=== PATIENT | male | born 1990 ===

== ENCOUNTER 2022-09-11 07:54 | Outpatient (REF) | payer OTHER, SELFPAY ==
[2022-09-11 08:05] LABS: MANUAL DIFF FLAG NO
[2022-09-11 08:19] LABS: Basophils Percent Auto 0.4 % (0-2); Eosinophils Percent Auto 0.7 % (0-4); Hemoglobin 14.7 g/dl (14.0-18.0); Imm Gran Abs Auto 0.01 X10*3/uL (0.00-0.03); Imm Gran Pct Auto 0.2 % (0.0-0.4); Lymphocytes Absolute Auto 2.3 X10*3/uL (1.2-4.9); Lymphocytes Percent Auto 42.6 % (20-40); Mean Corpuscular HGB Conc 32.7 g/dl (31.0-36.0); Mean Corpuscular Hemoglobin 26.9 pg (27.0-33.0); Mean Corpuscular Volume 82.3 fL (80.0-98.0); Mean Platelet Volume 10.7 fL (9.4-12.4); Monocytes Absolute Auto 0.5 X10*3/uL (0.1-1.2); Monocytes Percent Auto 9.5 % (2-11); Neutrophils Absolute Auto 2.6 x10*3/uL (2.0-8.3); Neutrophils Percent Auto 46.6 % (45-73); Platelet Count 174 X10*3/uL (160-400); Red Blood Count 5.47 X10*6/uL (4.60-5.80); Red Cell Distribution Width 12.6 % (11.0-16.0); White Blood Count 5.5 X10*3/uL (4.8-10.8)
[2022-09-11 09:32] LABS: Alanine Aminotransferase 61 U/L (0-40); Albumin Level 4.4 g/dL (3.5-5.0); Alkaline Phosphatase 52 U/L (39-117); Anion Gap 11 (12-20); Aspartate Amino Transferase 27 U/L (5-37); Bilirubin Total 1.1 mg/dL (0.0-1.0); Blood Urea Nitrogen 17 mg/dL (9-16); Calcium 9.9 mg/dL (8.4-10.2); Carbon Dioxide 29 mmol/L (22-29); Chloride 106 mmol/L (96-108); Cholesterol 159 mg/dL; Estimated Glomerular Filt Rate > 60; Glucose Fasting 91 mg/dL (60-99); HDL Cholesterol 42 mg/dL; LDL Cholesterol Calculated 101 mg/dl; Potassium 4.5 mmol/L (3.3-5.1); Sodium 141 mmol/L (135-145); Total Protein 7.3 g/dL (6.5-8.0); Triglycerides 82 mg/dL
== END 2022-09-11 07:55 | disposition home or self-care (01) ==
LOC: HO.LAB 07:54
PROVIDERS: PCP Internal Medicine; Visit Provider Nurse Practitioner Family
DX: E66.9 Obesity, unspecified (principal)
CPT/HCPCS: 36415; 80053; 80061; 84439; 84443; 85025

== ENCOUNTER 2023-03-05 09:20 | Outpatient (REF) | payer OTHER, SELFPAY ==
[2023-03-05 11:42] LABS: Alanine Aminotransferase 55 U/L (0-40); Albumin Level 4.4 g/dL (3.5-5.0); Alkaline Phosphatase 48 U/L (39-117); Aspartate Amino Transferase 24 U/L (5-37); Bilirubin Direct 0.3 mg/dL (0.0-0.5); Bilirubin Total 1.3 mg/dL (0.0-1.0); Total Protein 7.6 g/dL (6.5-8.0)
[2023-03-05 12:00] LABS: Free T4 (Free Thyroxine) 0.95 ng/dL (0.71-1.85); Thyroid Stimulating Hormone 0.24 uIU/mL (0.32-4.0)
[2023-03-07 13:24] LABS: Thyroglobulin Antibodies <1 IU/mL (< or = 1); Thyroid Peroxidase Antibodies 1 IU/mL (<9)
== END 2023-03-05 09:21 | disposition home or self-care (01) ==
LOC: HO.LAB 09:20
PROVIDERS: PCP Internal Medicine; Visit Provider Internal Medicine
DX: R79.89 Other specified abnormal findings of blood chemistry (principal); R74.01 Elevation of levels of liver transaminase levels
CPT/HCPCS: 36415; 80076; 84439; 84443; 86376; 86800

== ENCOUNTER 2023-04-23 14:53 | Outpatient (AMB) | payer OTHER, SELFPAY ==
--- NOTE | 2023-04-23 14:54 | MHC.OFFVIS ---
Intake Vital Signs 04/23/23 15:16 Height 5 ft 8 in Weight 207 lb 3.752 oz BMI 31.5 BP 111/67 Blood Pressure Location Lt brachial Position Sitting Pulse 65 Intake Visit Reasons: Elevation of levels of liver transaminase levels Intake Note: Alin presents in the office as a new patient for elevated LFTs. CC: He states that he is not having any concerns today. Supply Assistant Required: No Allergies No Known Allergies Allergy (Verified 04/23/23 15:16) HPI HPI Comments History of Present Illness Details 32 y.o M with PMH of obesity s/p sleeve gastrectomy ([facility]) who is here for elevated LFTs. Pt currently has no gastrointestinal complaints to include abd pain, N,V. No abd distention, pruritus, rash, shortness of breath. No etOH use. No hx of recent medication changes or travel. Does not report IVDU. No fam hx of liver disease. Noted to have persistently elevated ALT since 2020. [facility] History Hand numbness Loud snoring Obese Polyarthralgia Surgical History H/O gastric sleeve Family History (Updated 04/23/23 @ 15:17 by VALERY Morel) Father No problems noted. Mother No problems noted. Maternal Grandmother Diabetes Maternal Grandfather No problems noted. Paternal Grandmother Diabetes Paternal Grandfather No problems noted. Family/Other Colon cancer Social History Housing: House Alcohol intake: current Alcohol intake frequency: holidays/special occasions only Alcohol type: beer and hard liquor Patient Tobacco Use Status: Never used Tobacco e-Cigarette/Vaping Use: Never Used Second Hand Smoke Exposure: No service: No Current occupational status: employed Current occupational exposures/hazards: No Cognitive needs: No Hearing needs: No Vision needs: No Review of Systems Const All systems reviewed & are unremarkable except as noted in HPI and below Physical Exam Vital Signs: Last Vital Signs Pulse 65 04/23/23 15:16 BP 111/67 04/23/23 15:16 BMI result Body Mass Index 31.5 Gen appear: NAD HEENT: nonicteric, no cervical lymphadenopathy Chest: CTA CVS: Regular S1/S2 Abd: soft, nontender, nondistended, bowel sounds + Ext: no peripheral edema Neuro: A/Ox3, noted to move all extremities spontaneously Psych: interacting appropriately Assessment & Plan Assessment & Plan (1) Elevated ALT measurement: Code(s): R74.01 - Elevation of levels of liver transaminase levels Plan Ddx include fatty liver/SOTOMAYOR, chronic hep, iron overload, AIH, wilsons, celiac etc. Work up ordered as below. US Abd also ordered. Fib 4 0.58 and therefore low likelihood of advanced fibrosis, and also no indication for elastography at this time. In the meantime, advised to avoid OTC/CAM, NSAIDs and etOH use. Follow up in 8 weeks. Orders: Orders Ceruloplasmin 04/23/23 R74.01 - Elevation of levels of liver transaminase levels Ferritin 04/23/23 R74.01 - Elevation of levels of liver transaminase levels IRON PROFILE 04/23/23 R74.01 - Elevation of levels of liver transaminase levels Liver Panel 04/23/23 R74.01 - Elevation of levels of liver transaminase levels TSH reflex Free T4 04/23/23 R74.01 - Elevation of levels of liver transaminase levels JUAN Reflex Titer and Pattern 04/23/23 R74.01 - Elevation of levels of liver transaminase levels Immunoglobulin A 04/23/23 R74.01 - Elevation of levels of liver transaminase levels Immunoglobulin G 04/23/23 R74.01 - Elevation of levels of liver transaminase levels Liver Kidney Microsomal Ab 04/23/23 R74.01 - Elevation of levels of liver transaminase levels Smooth Muscle Antibody 04/23/23 R74.01 - Elevation of levels of liver transaminase levels Transglutaminase IgA 04/23/23 R74.01 - Elevation of levels of liver transaminase levels Hepatitis B Surface Antibody 04/23/23 R74.01 - Elevation of levels of liver transaminase levels Hepatitis A IgG 04/23/23 R74.01 - Elevation of levels of liver transaminase levels Hepatitis B Core Antibody 04/23/23 R74.01 - Elevation of levels of liver transaminase levels Hepatitis B Surface Antigen 04/23/23 R74.01 - Elevation of levels of liver transaminase levels Hepatitis C Antibody 04/23/23 R74.01 - Elevation of levels of liver transaminase levels HIV Ab/Ag 04/23/23 R74.01 - Elevation of levels of liver transaminase levels Hemoglobin A1c 04/23/23 R74.01 - Elevation of levels of liver transaminase levels Lipid Panel 04/23/23 R74.01 - Elevation of levels of liver transaminase levels Quality Reporting (2019) Adult ([facility] 138/11/15/68) Smoking risk assessment performed?: Yes Patient Tobacco Use Status: Never used Tobacco Coding Level of Care Code New Pt Level 4 (96330) Diagnoses Elevated ALT measurement R74.01
[2023-04-23 15:16] VITALS: BP 111/67; PULSE 65; BMI 31.5
== END 2023-04-23 15:53 | disposition home or self-care (01) ==
PROVIDERS: PCP Internal Medicine; Visit Provider Internal Medicine
DX: R74.01 Elevation of levels of liver transaminase levels (principal)
CPT/HCPCS: 99204

== ENCOUNTER 2023-04-23 14:53 | Outpatient (REF) | payer OTHER, SELFPAY ==
[2023-04-23 16:53] LABS: Estimated Average Glucose 94 mg/dL; Hemoglobin A1c % 4.9 %
[2023-04-23 17:20] LABS: Alanine Aminotransferase 49 U/L (0-40); Albumin Level 4.5 g/dL (3.5-5.0); Alkaline Phosphatase 54 U/L (39-117); Aspartate Amino Transferase 28 U/L (5-37); Bilirubin Direct 0.3 mg/dL (0.0-0.5); Cholesterol 149 mg/dL; HDL Cholesterol 39 mg/dL; Iron 74 mcg/dL (45-160); LDL Cholesterol Calculated 88 mg/dl; Percent Iron Saturation 24 % (15-50); Total Iron Binding Capacity 313 mcg/dL (228-428); Total Protein 7.9 g/dL (6.5-8.0); Triglycerides 111 mg/dL; Unsaturated Iron Binding 239 ug/dL
[2023-04-23 17:27] LABS: Ferritin 256 ng/mL (20-250); TSH reflex Free T4 0.23 uIU/mL (0.32-4.0)
[2023-04-23 18:58] LABS: Free T4 (Free Thyroxine) 0.99 ng/dL (0.71-1.85)
[2023-04-24 04:13] LABS: Hepatitis A Antibody IgG Nonreactive (Nonreactive)
[2023-04-24 04:25] LABS: HBS Num1 7.81 mIU/mL (0-7.99); HBc Num1 0.07 S/CO (0.00-0.79); HIV AB/AG Nonreactive (Nonreactive); HIV Num 1 0.05 S/CO (0.00-0.99); Hepatitis B Core Antibody Nonreactive (Nonreactive); Hepatitis B Surface Antigen Negative (Negative); ~HepC Num1 0.07 S/CO (0.00-0.79); ~Hepatitis B Surface Antibody NONREACTIVE (Nonreactive); ~Hepatitis C Antibody Nonreactive (Nonreactive)
[2023-04-25 14:13] LABS: Transglutaminase IgA <1.0 U/mL
[2023-04-25 17:33] LABS: Ceruloplasmin 24 mg/dL (18-36); Immunoglobulin A 403 mg/dL (47-310); Immunoglobulin G 1418 mg/dL (600-1640)
[2023-04-26 23:14] LABS: Smooth Muscle Antibody <20 U (<20)
[2023-04-27 23:33] LABS: Liver Kidney Microsomal Ab <=20.0 U (<=20.0)
[2023-04-29 15:38] LABS: Anti Nuclear Antibody Screen NEGATIVE (NEGATIVE)
== END 2023-04-23 14:54 | disposition home or self-care (01) ==
LOC: HO.LAB 14:53
PROVIDERS: PCP Internal Medicine; Visit Provider Internal Medicine
DX: R74.01 Elevation of levels of liver transaminase levels (principal)
CPT/HCPCS: 36415; 80061; 80076; 82390; 82728; 82784; 83036; 83540; 84439; 84443; 86015; 86038; 86364; 86376; 86704; 86706; 86708; 86803; 87340; 87389; 99202